=== PATIENT | female | born 1955 | race African-American/Black ===

== ENCOUNTER 2020-11-18 09:45 | Emergency (ER) | payer OTHER, SELFPAY ==
[2020-11-18 09:57] VITALS: BP 185/101; PULSE 102; RESP 20; TEMP 36.2; O2SAT 100
--- NOTE | 2020-11-18 09:58 | ED.FEMALEGU ---
HPI - Female Genitourinary General Chief complaint: Urogenital-Female Stated complaint: UTI Source: patient and RN notes reviewed Limitations: no limitations History of Present Illness HPI Narrative: The obese patient, ex-smoker/nondrinker, presents with urinary symptoms. Patient states she has about 1/2-week history of urinary frequency and urgency. This was associated today with suprapubic pain and emesis x2-3. No fever measured, low back pain, diarrhea, stool changes [darker/stave machine tender] constipation. Medical record indicates prior history of partial hysterectomy, diverticulitis , HTN. Triage remarkable for elevated blood pressure, and complete inability to repeatedly void. Discussed plan to refer to hospital for further testing and treatment. Related Data Home Medications Medication Instructions Recorded Confirmed amlodipine 1 mg PO DAILY 11/18/20 11/18/20 losartan 1 mg PO DAILY 11/18/20 11/18/20 Allergies Allergy/AdvReac Type Severity Reaction Status Date / Time No Known Allergies Allergy Verified 11/18/20 10:07 Review of Systems Review of Systems: Narrative: General/Constitutional: No weight loss,fever Eyes: N0: Redness,discharge Ears/Nose/Throat: No: Epistaxis,ear discharge Respiratory: Denies: Hemoptysis Gastrointestinal: No Vomiting, Bleeding-rectal Skin: No Lumps, eruption Neurologic: No Focal Weakness,Sz Hematologic: Denies: Petechiae/Purpura Psychiatric: No: Suicida ideationl All Other Systems: Reviewed and Negative [facility] Social History Social History Gender identity (if verbalized by the patient): Female Comments At time of signature, agree with nursing past medical, surgical, social and family history. There is no relevant family history pertinent to the presenting complaint Exam Narrative: Exam Narrative: General Appearance: Obese appearing, No distress EYE: PERRLA, Conjunctiva clear Ears: External ear normal Nose: Normal nose Mouth/Throat: Normal appearing, Normal lips Neck: Supple Respiratory: Airway patent, No respiratory distress Cardiovascular: RRR Abdomen: Soft, suprapubic tenderness no massess, bladder enlarged /organomegaly (no rebound/ surgical signs), Hyperactive bowel sounds Musculoskeletal: Full ROM Skin: Warm, Dry Neurological: A&O x3, CN II-X intact Psychiatric: Normal mood, Normal affect Course Vital Signs Vital signs: Vital Signs Temperature 97.2 F L 11/18/20 09:57 Pulse Rate 102 H 11/18/20 09:57 Respiratory Rate 20 04/13/21 09:57 Blood Pressure 185/101 H 11/18/20 09:57 Pulse Oximetry 100 11/18/20 09:57 Temperature 97.2 F L 11/18/20 09:57 Pulse Rate 102 H 11/18/20 09:57 Respiratory Rate 20 11/18/20 09:57 Blood Pressure 185/101 H 11/18/20 09:57 Pulse Oximetry 100 11/18/20 09:57 Discharge Plan Discharge Clinical Impression: Acute suprapubic pain, Acute urinary retention Patient Disposition: Acute Care Hospital Condition: Stable Instructions: Urinary Tract Infection in Women (ED), Pelvic Pain (ED) Additional Instructions: You are advised and agreed to go to higher-level care facility to higher level testing , because for early diagnosis of serious problems [pyelonephritis, diverticulitis, atypical appendicitis, etc], clear specific symptoms do not develope until later Prescriptions: New phenazopyridine [Pyridium] 100 mg tablet 100 mg PO BID PRN (Reason: pain) Qty: 6 RF: 0 amoxicillin-pot clavulanate [Augmentin] 500-125 mg tablet 1 tablet PO Q12H Qty: 14 RF: 0 No Action amlodipine 10 mg tablet 1 mg PO DAILY RF: 0 losartan 100 mg tablet 1 mg PO DAILY RF: 0 Follow-up/Referrals: Amando,John Nash MD [Primary Care Provider] -
--- NOTE | 2020-11-18 10:27 | PC.NURSE ---
Pt was given water, waiting for urine specimen.
--- NOTE | 2020-11-18 11:11 | PC.NURSE ---
1109- Pt offered more water, waiting for specimen. No further complaints at this time.
[2020-11-18] MEDS: KETOROLAC (*BKC) 60 MG/2 ML VIAL IM (11:39)
== END 2020-11-18 12:02 | disposition short-term general hospital (02) ==
PROVIDERS: Emergency Provider Emergency Medicine; PCP Family Medicine
DX: R10.30 Lower abdominal pain, unspecified (principal); R33.9 Retention of urine, unspecified; Z90.711 Acquired absence of uterus with remaining cervical stump; I10 Essential (primary) hypertension
CPT/HCPCS: 96372; 99213; G0463; J1885